=== PATIENT | male | born 1960 | race Caucasian/White ===

== ENCOUNTER → 2016-12-03 | Outpatient (CLI) | payer MEDICARE | LOC: KOH-I 10:00 | DX: R07.81 Pleurodynia (principal) | CPT/HCPCS: 71020 ==

== ENCOUNTER → 2022-01-21 | Outpatient (CLI) | payer MEDICARE | LOC: KOH-I 09:50 | DX: R05.9 Cough, unspecified (principal) | CPT/HCPCS: 71046 ==